=== PATIENT | female | born 1965 | race Caucasian/White ===

== ENCOUNTER 2020-01-30 12:50 | Outpatient (CLI) | payer MEDICAID, SELFPAY ==
[2020-01-30 13:57] LABS: Eosinophils % 0.8 %; Hematocrit 39.1 % (37.0-47.0); Hemoglobin 13.1 g/dL (11.5-15.3); Lymphocytes # 0.8 10^3/uL (0.8-4.8); Lymphocytes % 20.6 %; Mean Corpuscular HGB Conc 33.5 g/dL (30.0-36.0); Mean Corpuscular Hemoglobin 30.2 pg (28.0-34.0); Mean Corpuscular Volume 90.1 fL (81-99); Mean Platelet Volume 10.2 fL (7.4-10.4); Monocytes # 0.4 10^3/uL (0.2-0.9); Monocytes % 10.8 %; Neutrophils # 2.6 10^3/uL (1.8-7.7); Neutrophils % 66.3 %; Nucleated Red Blood Cells % 0 %; Platelet Count 227 10^3/cmm (130-400); Red Blood Count 4.34 10^6/uL (4.1-5.3); White Blood Count 3.9 10^3/uL (4.0-10.0)
[2020-01-30 14:27] LABS: Alanine Aminotransferase 20 U/L (0-33); Albumin Level 4.7 g/dL (3.5-5.2); Alkaline Phosphatase 35 IU/L (35-105); Anion Gap 17.8 (5-19); Aspartate Amino Transferase 32 U/L (0-32); Blood Urea Nitrogen 14 mg/dL (6-20); Calcium 9.6 mg/dL (8.5-10.5); Carbon Dioxide 19 mmol/L (22-29); Chloride 104 mmol/L (98-107); Glucose 108 mg/dL (65-115); Osmolality Calculated 281 mOsm/kg (285-295); Potassium 3.8 mmol/L (3.5-5.1); Sodium 137 mmol/L (136-145); Total Bilirubin 0.4 mg/dL (0.15-1.2); Total Protein 7.7 g/dL (6.6-8.7)
[2020-01-30 14:42] LABS: 25 Hydroxy Vitamin D 25 ng/mL (30-100)
[2020-01-30] MEDS: sodium chloride 0.9% 100 ML 300 ML (14:43)
--- NOTE | 2020-02-02 15:36 | ONC FU_ITS ---
Dr. Wellington Patient Follow-Up Note Patient: Bella Conley Unit #: [id number]: 1965 Dicatated By: Al Wellington M.D.Date of Visit:Jan 30, 2020 Onc Med Follow-up/Prog Note Chief Complaint: Breast cancer. History of Present Illness: This is a 54 year-old woman with grade 2 infiltrating ductal carcinoma of the right breast, stage IIB (T2, pN1a, M0), ER/GA positive and HER-2/wan negative. She had presented with bloody discharge from the right nipple. Her bilateral screening mammogram on 11/08/2017 showed a question of increasing calcification cluster in the lateral superior posterior third right breast, BI-RADS 0. Additional mammographic views and ultrasound on 01/19/2018 was BI-RADS 5, highly suggestive of malignancy. Numerous irregularly shaped calcifications were noted along the 9 to 10:00 axis with adjacent soft tissue asymmetry measuring 18 x 8 mm. Ultrasound showed an irregular shaped mass at the 9:00 axis measuring 13 x 9 mm. She underwent ultrasound-guided biopsy on 01/29/2018. Pathology showed grade 2 infiltrating ductal carcinoma. The breast prognostic profile showed unfavorable Ki-67 at 36%. ER was positive at 91%, strong intensity, and GA was positive at 72%, also strong intensity. HER-2/wan was nonamplified, 2+ by IHC with amplification ratio by FISH of 1.8 with 2.5 HER- copy/cell. She then had surgical consultation with Dr. Katz in [place]. She had further evaluation with breast MRI. On 04/02/2018 she underwent right total mastectomy with axillary sentinel lymph node sampling, prophylactic left mastectomy, and immediate breast reconstruction. Pathology on the left breast showed fibrocystic change with fibrosis, apocrine metaplasia, and microcyst formation. The right breast showed grade 2 invasive ductal carcinoma measuring 21 x 20 x 15 mm. The closest margin from invasive carcinoma was greater than 10 mm. 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 The closest margin from DCIS was the deep margin at 6 mm. There was involvement in 2 of 2 axillary sentinel lymph nodes, the largest metastatic deposit measuring 6 mm. There was evidence of extranodal extension. The pathologic staging was pT2, pN1a. She underwent adjuvant chemotherapy with dose dense AC/T. She began cycle 1 of Adriamycin/cyclophosphamide on 05/16/2018. She did receive first cycle prophylaxis with Neulasta. She tolerated it with acceptable toxicity, and she was able to continue with cycle 2 on 05/30/2018. With cycle 3 on 06/13/2018 I did opt to omit the Neulasta. She was able to continue with cycle 4 on 06/28/2018. She then began weekly paclitaxel on 07/12/2018. She tolerated the initial infusion with no acute toxicity, and she then continue treatment weekly. She completed her 12th and final weekly paclitaxel infusion on 09/27/2018. She then underwent bilateral breast reconstruction. In December 2018 she began adjuvant hormonal therapy with anastrozole 1 mg daily. Within 2 days with pre-severe reaction which included swelling in her face, eyes, and tongue. It resolved with Benadryl. She then began a trial of therapy with exemestane 25 mg daily on 01/21/2019. She experienced no acute toxicity with it. Restaging PET/CT on 04/06/2019 showed an FDG avid right level II axillary lymph node measuring 5 mm, SUV 1.8. It was felt to be suspicious for micrometastasis. There were no other areas of abnormal uptake on that study. She was then seen by Dr. Katz and she underwent right axillary lymph node dissection on 04/29/2019. Pathology showed metastatic ductal carcinoma involving 2/2 lymph nodes. The metastatic deposits measured 3 mm and 6 mm, and both showed extracapsular extension. The breast prognostic profile showed ER positive at 98% and GA positive at 29%. HER-2/wan was negative, 1+ by IHC. A next generation sequencing study was positive for androgen receptor at 2+. It was also positive for PD-L1 expression at 1%. There were no actionable mutations identified. She was then seen for second opinion evaluation by Dr. Jensen Reeves at [facility]. She was referred for consolidation radiation therapy to the right axilla, and she continued adjuvant hormonal therapy with exemestane. She also was recommended to begin Zometa infusions prophylactically for bone health. Her other medical illnesses have been limited to hypothyroidism, GERD, and seasonal allergies. Her prior surgeries include vaginal hysterectomy in 1996 and appendectomy in 1994. She had been on long-term hormone replacement therapy beginning in 1997, though she apparently did not have oophorectomy. Her hormonal therapy was stopped with the diagnosis of her breast cancer. She had previously smoked 1-1/2 packs of cigarettes daily, but she quit smoking at age 32. INTERIM HISTORY: She is seen for a follow-up visit. Overall she has been feeling better. She still sometimes feels really tired, she has normal activity. Her appetite is good. She has not had fever. She does tend to get hot flashes and sweating on a regular basis about 3 to 4 a.m. She does have joint pain, mainly in the hips and elbows and a little bit in her knees. She says it stays about the same. She does get some benefit when she takes Aleve. She has a little bit of dry cough. She has no shortness of breath or chest pain. Her acid reflux symptoms are adequately managed with medication. She has no other GI or complaints. She does not complain of headache or dizziness. She has no focal neurologic symptoms. Medications: Advil 1 Tablet (of 200 mg) Capsule Oral daily PRN, busPIRone HCl 1 Tablet (of 10 mg) Oral t.i.d., Furosemide 20 - 40 mg (of 20 mg) Tablet Oral daily PRN, Percocet 0.5 Tablet (of 5-325 mg) Oral q 4 to 6 hours PRN, PROzac 1 Capsule (of 20 mg) Oral daily, PROzac 1 Capsule (of 40 mg) Oral daily, traZODone HCl 1 (100 mg) Tablet Oral at bedtime Allergies: Anastrozole Review of Systems: Constitutional - Her energy is better. She still gets fatigued easily, but she is doing all normal activities. Appetite is good and weight is stable. No fever or chills. She is having constant hot flashes during the night along with sweating. ECOG score is 0, ENMT - No sinus congestion/drainage. No mouth sores. No sore throat or difficulty swallowing, Hematologic/Lymphatic - No abnormal bruising or bleeding, Respiratory - No shortness of breath. She has a dry cough. No pleuritic pain or hemoptysis, Cardiovascular - No angina pain. No palpitations, Gastrointestinal - No nausea or vomiting. She has heartburn that is well controlled with Prilosec. No diarrhea or constipation. No blood in the stool or black stools, Genitourinary (F) - No dysuria or hematuria. No urinary frequency. No urgency or incontinence, Musculoskeletal - She has some joint pain, but tolerable, Integumentary - No skin complications, Neurologic - Occasional headaches. No dizziness. No numbness/paresthesias or other focal neurologic symptoms, Psychiatric - She has some anxiety. No depression. She sleeps okay with trazodone. Vital Signs: Performed on Jan 30, 2020 14:11 Height - 68.00 in Weight - 197.2 lbs (HIGH) BSA - 2.03 sq.m BMI - 29.98 Temperature - 99.2 F (HIGH) Pulse - 64 /min Respiration - 18 /min BP - 142/74 mm(hg) (HIGH) O2 Sat - 99 % Pain - 0 Physical Examination: Constitutional - She looks good generally, Eyes - Sclerae nonicteric. Conjunctivae clear, ENMT - No lesions noted in the oral cavity, Hematologic/Lymphatic - No cervical or clavicular adenopathy, Respiratory - Lungs are clear with good air movement bilaterally, Cardiovascular - Heart rhythm is regular. There is no murmur, gallop, or rub noted, Breasts - There are no lesions noted in the chest wall/reconstruction bilaterally. There is no axillary adenopathy, Abdomen - Soft. Liver and spleen are not enlarged. There is no abdominal mass or ascites noted and there is no inguinal adenopathy, Extremities - No edema, Neurologic - No focal neurologic deficits noted. Lab/Imaging: Test performed on Jan 30, 2020 13:10 Sodium 137 mmol/L Vitamin D (25-Hydroxy), Total 25 ng/mL Potassium 3.8 mmol/L Chloride 104 mmol/L CO2 19 mmol/L Anion Gap 17.8 BUN 14 mg/dL Creatinine 0.8 mg/dL Cr Clearance (Est) 114.8400 mL/min eGFR 75.0 mL/min Glucose 108 mg/dL Calcium 9.6 mg/dL Protein, Total 7.7 g/dL Albumin 4.7 g/dL Globulin 3.0 g/dL Bilirubin, Total 0.4 mg/dL ALT (SGPT) 20 U/L AST (SGOT) 32 U/L Alkaline Phosphatase 35 IU/L WBC 3.9 10 3/uL RBC 4.34 10 6/uL HGB 13.1 g/dL HCT 39.1 % MCV 90.1 fL MCH 30.2 pg MCHC 33.5 g/dL RDW 13.0 % Platelet Count 227 10 3/cmm MPV 10.2 fL Neutrophils 2.6 10 3/uL Lymphocytes 0.8 10 3/uL Monocytes 0.4 10 3/uL Eosinophils 0.0 10 3/uL Basophils 0.0 10 3/uL Neutrophil % 66.3 % Lymphocyte % 20.6 % Monocyte % 10.8 % Eosinophil % 0.8 % Basophils % 1.0 % Impression: 1. Patient with grade 2 infiltrating ductal carcinoma of the right breast, stage IIB (T2, pN1a, M0), ER/GA positive and HER-2/wan negative. 2. She underwent ultrasound directed biopsy of the right breast on 01/29/2018 followed by bilateral mastectomy with immediate reconstruction and right axillary sentinel lymph node sampling on 04/02/2018. 3. She underwent adjuvant chemotherapy with 4 cycles of dose dense AC from 05/16/2018 through 06/28/2018 and 12 weekly infusions of paclitaxel from 07/12/2018 through 09/27/2018. 4. She then underwent bilateral breast reconstruction. Her other medical illnesses include: 5. Hypothyroidism. 6. Seasonal allergies. 7. GERD. In December 2018 she began adjuvant hormonal therapy with anastrozole 1 mg daily. It was stopped within 2 days because of an acute reaction which included swelling in the face, eyes, and tongue. It resolved with Benadryl. She then began a trial of hormonal therapy with exemestane 25 mg daily on 01/21/2019. Restaging PET/CT in March 2019 showed suspicious uptake in a right level II axillary lymph node. A subsequent right axillary lymph node dissection on 04/29/2019 showed metastatic ductal carcinoma in 2/2 lymph nodes, both with extracapsular extension, ER/GA positive and HER-2/wan negative. Next generation sequencing showed androgen receptor positive at 2+ and positive PD-L1 expression at 1%. She was then seen for second opinion evaluation by Dr. Jensen Reeves at [facility]. She completed consolidation radiation to the right axilla. She continued adjuvant hormonal therapy with exemestane 25 mg daily. She also began IV Zometa for bone health. She tolerated the initial infusion with no adverse effects. During follow-up she has continued to have some fatigue and she has some musculoskeletal pain, though it is tolerable. Overall, she appears to be doing well clinically with no further progression of the breast cancer. Plan: She continues adjuvant hormonal therapy with exemestane 25 mg daily. She will be given Zometa 4 mg by IV infusion for bone health. She will take Aleve as needed for joint pain. She will be scheduled for a follow-up visit in 6 months. Signed By: Al Wellington M.D. <<Signature on File>>
== END 2020-01-30 12:51 | disposition home or self-care (01) ==
LOC: ONCMED 12:54
PROVIDERS: Family Provider Registered Nurse; PCP Registered Nurse; Visit Provider Internal Medicine Medical Oncology
DX: C50.411 Malignant neoplasm of upper-outer quadrant of right female breast (principal); C77.3 Secondary and unspecified malignant neoplasm of axilla and upper limb lymph nodes; Z17.0 Estrogen receptor positive status [ER+]; E03.9 Hypothyroidism, unspecified; K21.9 Gastro-esophageal reflux disease without esophagitis; M25.50 Pain in unspecified joint; Z79.811 Long term (current) use of aromatase inhibitors; Z79.891 Long term (current) use of opiate analgesic; Z90.13 Acquired absence of bilateral breasts and nipples; Z92.21 Personal history of antineoplastic chemotherapy; Z92.3 Personal history of irradiation; Z87.891 Personal history of nicotine dependence
CPT/HCPCS: 80053; 82306; 85025; 96365; 96367; 99214; J1100; J3489

== ENCOUNTER 2020-07-30 14:01 | Outpatient (CLI) | payer MEDICAID, SELFPAY ==
[2020-07-30 14:37] LABS: Basophils # 0.1 10^3/uL (0.0-0.1); Basophils % 1.1 %; Eosinophils # 0.1 10^3/uL (0.0-0.8); Eosinophils % 1.5 %; Hematocrit 39.3 % (37.0-47.0); Hemoglobin 13.5 g/dL (11.5-15.3); Lymphocytes # 1.1 10^3/uL (0.8-4.8); Lymphocytes % 23.6 %; Mean Corpuscular HGB Conc 34.4 g/dL (30.0-36.0); Mean Corpuscular Hemoglobin 31.8 pg (28.0-34.0); Mean Corpuscular Volume 92.7 fL (81-99); Mean Platelet Volume 9.6 fL (7.4-10.4); Monocytes # 0.3 10^3/uL (0.2-0.9); Monocytes % 7.3 %; Neutrophils # 3.09 10^3/uL (1.8-7.7); Neutrophils % 66.3 %; Nucleated Red Blood Cells % 0 %; Platelet Count 217 10^3/cmm (130-400); Red Blood Count 4.24 10^6/uL (4.1-5.3); Red Cell Distribution Width 12.5 % (12.1-15.1); White Blood Count 4.7 10^3/uL (4.0-10.0)
[2020-07-30 15:15] LABS: 25 Hydroxy Vitamin D 33 ng/mL (30-100); Alanine Aminotransferase 38 U/L (0-33); Albumin Level 4.9 g/dL (3.5-5.2); Alkaline Phosphatase 41 IU/L (35-105); Anion Gap 14.8 (5-19); Aspartate Amino Transferase 36 U/L (0-32); Blood Urea Nitrogen 19 mg/dL (6-20); Calcium 8.8 mg/dL (8.5-10.5); Carbon Dioxide 25 mmol/L (22-29); Chloride 99 mmol/L (98-107); Globulin 2.9 g/dL (1.3-4.6); Glomerular Filtration Rate 65.2 mL/min (90-130); Glucose 121 mg/dL (65-115); Osmolality Calculated 278 mOsm/kg (285-295); Potassium 3.8 mmol/L (3.5-5.1); Sodium 135 mmol/L (136-145); Total Bilirubin 0.4 mg/dL (0.15-1.2); Total Protein 7.8 g/dL (6.6-8.7)
[2020-07-30] MEDS: zoledronic acid 4 MG in sodium chloride 0.9% (100 ml) 100 ML 210 MG IV (16:45)
--- NOTE | 2020-07-31 08:18 | ONC FU_ITS ---
Dr. Wellington Patient Follow-Up Note Patient: Bella Conley Unit #: [id number]: 1965 Dicatated By: Al Wellington M.D.Date of Visit:Jul 30, 2020 Onc Med Follow-up/Prog Note Chief Complaint: Breast cancer. History of Present Illness: This is a 54 year-old woman with grade 2 infiltrating ductal carcinoma of the right breast, stage IIB (T2, pN1a, M0), ER/RI positive and HER-2/wan negative. She had presented with bloody discharge from the right nipple. Her bilateral screening mammogram on 11/08/2017 showed a question of increasing calcification cluster in the lateral superior posterior third right breast, BI-RADS 0. Additional mammographic views and ultrasound on 01/19/2018 was BI-RADS 5, highly suggestive of malignancy. Numerous irregularly shaped calcifications were noted along the 9 to 10:00 axis with adjacent soft tissue asymmetry measuring 18 x 8 mm. Ultrasound showed an irregular shaped mass at the 9:00 axis measuring 13 x 9 mm. She underwent ultrasound-guided biopsy on 01/29/2018. Pathology showed grade 2 infiltrating ductal carcinoma. The breast prognostic profile showed unfavorable Ki-67 at 36%. ER was positive at 91%, strong intensity, and RI was positive at 72%, also strong intensity. HER-2/wan was nonamplified, 2+ by IHC with amplification ratio by FISH of 1.8 with 2.5 HER- copy/cell. She then had surgical consultation with Dr. Katz in [place]. She had further evaluation with breast MRI. On 04/02/2018 she underwent right total mastectomy with axillary sentinel lymph node sampling, prophylactic left mastectomy, and immediate breast reconstruction. Pathology on the left breast showed fibrocystic change with fibrosis, apocrine metaplasia, and microcyst formation. The right breast showed grade 2 invasive ductal carcinoma measuring 21 x 20 x 15 mm. The closest margin from invasive carcinoma was greater than 10 mm. 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 The closest margin from DCIS was the deep margin at 6 mm. There was involvement in 2 of 2 axillary sentinel lymph nodes, the largest metastatic deposit measuring 6 mm. There was evidence of extranodal extension. The pathologic staging was pT2, pN1a. She underwent adjuvant chemotherapy with dose dense AC/T. She began cycle 1 of Adriamycin/cyclophosphamide on 05/16/2018. She did receive first cycle prophylaxis with Neulasta. She tolerated it with acceptable toxicity, and she was able to continue with cycle 2 on 05/30/2018. With cycle 3 on 06/13/2018 I did opt to omit the Neulasta. She was able to continue with cycle 4 on 06/28/2018. She then began weekly paclitaxel on 07/12/2018. She tolerated the initial infusion with no acute toxicity, and she then continue treatment weekly. She completed her 12th and final weekly paclitaxel infusion on 09/27/2018. She then underwent bilateral breast reconstruction. In December 2018 she began adjuvant hormonal therapy with anastrozole 1 mg daily. Within 2 days with pre-severe reaction which included swelling in her face, eyes, and tongue. It resolved with Benadryl. She then began a trial of therapy with exemestane 25 mg daily on 01/21/2019. She experienced no acute toxicity with it. Restaging PET/CT on 04/06/2019 showed an FDG avid right level II axillary lymph node measuring 5 mm, SUV 1.8. It was felt to be suspicious for micrometastasis. There were no other areas of abnormal uptake on that study. She was then seen by Dr. Katz and she underwent right axillary lymph node dissection on 04/29/2019. Pathology showed metastatic ductal carcinoma involving 2/2 lymph nodes. The metastatic deposits measured 3 mm and 6 mm, and both showed extracapsular extension. The breast prognostic profile showed ER positive at 98% and RI positive at 29%. HER-2/wan was negative, 1+ by IHC. A next generation sequencing study was positive for androgen receptor at 2+. It was also positive for PD-L1 expression at 1%. There were no actionable mutations identified. She was then seen for second opinion evaluation by Dr. Jensen Reeves at [facility]. She was referred for consolidation radiation therapy to the right axilla, and she continued adjuvant hormonal therapy with exemestane. She also was recommended to begin Zometa infusions prophylactically for bone health. Her other medical illnesses have been limited to hypothyroidism, GERD, and seasonal allergies. Her prior surgeries include vaginal hysterectomy in 1996 and appendectomy in 1994. She had been on long-term hormone replacement therapy beginning in 1997, though she apparently did not have oophorectomy. Her hormonal therapy was stopped with the diagnosis of her breast cancer. She had previously smoked 1-1/2 packs of cigarettes daily, but she quit smoking at age 32. INTERIM HISTORY: She is seen for a follow-up visit. She had a scheduled follow-up at [facility] in May. She indicates that her restaging PET/CT at that time showed no evidence of recurrence. She was recommended to continue her adjuvant hormonal therapy and to also continue the Zometa infusions for bone health. She has been feeling pretty good generally, though she says she is tired a lot. Her ECOG score is 1. Her appetite is good. She has gained weight. She has not had fever. 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 She has some sinus drainage and cough. She does not complain of shortness of breath or chest pain. She has heartburn, which is pretty well controlled with omeprazole. She has no other GI or complaints. She has some generalized soreness, at least some of which is attributable to the Zometa. She has some sinus headaches. She does not complain of dizziness. She has no focal neurologic symptoms. Medications: Advil 1 Tablet (of 200 mg) Capsule Oral daily PRN, Omeprazole 1 (40 mg) Capsule Delayed Release Oral daily, PROzac 1 Capsule (of 40 mg) Oral daily, traZODone HCl 1 (100 mg) Tablet Oral at bedtime Allergies: Anastrozole Review of Systems: Constitutional - She is feeling good, but she does feel tired alot of the time. Her appetite is good and her weight is stable. No fevers. She continues to have nightly sweating episodes. No hot flashes. ECOG score is 1, ENMT - She has seasonal allergies. She recently started taking Benadryl at night. She has some sinus drainage. No mouth sores. No sore throat or difficulty swallowing, Hematologic/Lymphatic - No abnormal bruising or bleeding, Respiratory - No shortness of breath. She has cough, mainly at night from sinus drainage. No pleuritic pain or hemoptysis, Cardiovascular - No angina pain. No palpitations, Gastrointestinal - No nausea or vomiting. Her heartburn is adequately managed with omeprazole. No diarrhea or constipation. No blood in the stool or black stools, Genitourinary (F) - No dysuria or hematuria. No urinary frequency. No urgency or incontinence, Musculoskeletal - She has some generalized aches, Integumentary - No skin complications, Neurologic - She has occasional headaches, she believes they are sinus related. No dizziness. No numbness or tingling. No other focal neurologic symptoms, Psychiatric - She has some mild anxiety. No depression. She is sleeping well with trazodone. Vital Signs: Performed on Jul 30, 2020 15:50 Height - 68.00 in Weight - 198.8 lbs (HIGH) BSA - 2.04 sq.m BMI - 30.23 (HIGH) Temperature - 97.7 F (LOW) Pulse - 72 /min Respiration - 16 /min BP - 145/69 mm(hg) (HIGH) O2 Sat - 97 % Pain - 0 Physical Examination: Constitutional - She looks good generally, Eyes - Sclerae nonicteric. Conjunctivae clear, ENMT - No lesions noted in the oral cavity, Hematologic/Lymphatic - No cervical, clavicular, or axillary adenopathy, Respiratory - Lungs are clear with good air movement bilaterally, Cardiovascular - Heart rhythm is regular. There is no murmur, gallop, or rub noted, Abdomen - Soft. Liver and spleen are not enlarged. There is no abdominal mass or ascites noted and there is no inguinal adenopathy, Extremities - No edema, Neurologic - No focal neurologic deficits noted. Lab/Imaging: Test performed on Jul 30, 2020 14:12 Sodium 135 mmol/L Vitamin D (25-Hydroxy), Total 33 ng/mL Potassium 3.8 mmol/L Chloride 99 mmol/L CO2 25 mmol/L Anion Gap 14.8 BUN 19 mg/dL Creatinine 0.9 mg/dL Cr Clearance (Est) 101.73 mL/min eGFR 65.2 mL/min Glucose 121 mg/dL Calcium 8.8 mg/dL Protein, Total 7.8 g/dL Albumin 4.9 g/dL Globulin 2.9 g/dL Bilirubin, Total 0.4 mg/dL ALT (SGPT) 38 U/L AST (SGOT) 36 U/L Alkaline Phosphatase 41 IU/L WBC 4.7 10 3/uL RBC 4.24 10 6/uL HGB 13.5 g/dL HCT 39.3 % MCV 92.7 fL MCH 31.8 pg MCHC 34.4 g/dL RDW 12.5 % Platelet Count 217 10 3/cmm MPV 9.6 fL Neutrophils 3.09 10 3/uL Lymphocytes 1.1 10 3/uL Monocytes 0.3 10 3/uL Eosinophils 0.1 10 3/uL Basophils 0.1 10 3/uL Neutrophil % 66.3 % Lymphocyte % 23.6 % Monocyte % 7.3 % Eosinophil % 1.5 % Basophils % 1.1 % NRBC % 0 % Impression: 1. Patient with grade 2 infiltrating ductal carcinoma of the right breast, stage IIB (T2, pN1a, M0), ER/RI positive and HER-2/wan negative. 2. She underwent ultrasound directed biopsy of the right breast on 01/29/2018 followed by bilateral mastectomy with immediate reconstruction and right axillary sentinel lymph node sampling on 04/02/2018. 3. She underwent adjuvant chemotherapy with 4 cycles of dose dense AC from 05/16/2018 through 06/28/2018 and 12 weekly infusions of paclitaxel from 07/12/2018 through 09/27/2018. 4. She then underwent bilateral breast reconstruction. Her other medical illnesses include: 5. Hypothyroidism. 6. Seasonal allergies. 7. GERD. In December 2018 she began adjuvant hormonal therapy with anastrozole 1 mg daily. It was stopped within 2 days because of an acute reaction which included swelling in the face, eyes, and tongue. It resolved with Benadryl. She then began a trial of hormonal therapy with exemestane 25 mg daily on 01/21/2019. Restaging PET/CT in March 2019 showed suspicious uptake in a right level II axillary lymph node. A subsequent right axillary lymph node dissection on 04/29/2019 showed metastatic ductal carcinoma in 2/2 lymph nodes, both with extracapsular extension, ER/RI positive and HER-2/wan negative. Next generation sequencing showed androgen receptor positive at 2+ and positive PD-L1 expression at 1%. She was then seen for second opinion evaluation by Dr. Jensen Reeves at [facility]. She completed consolidation radiation to the right axilla. She continued adjuvant hormonal therapy with exemestane 25 mg daily. She also began IV Zometa for bone health. She tolerated the initial infusion with no adverse effects. During follow-up she has continued to have some fatigue. She also has some hot flashes and some generalized soreness, and she also has had weight gain. Her symptoms, though, remain tolerable and overall she continues to do well clinically with no evidence of recurrence of the breast cancer. Plan: She continues adjuvant hormonal therapy with exemestane 25 mg daily. She will be given Zometa 4 mg by IV infusion for bone health. She will be premedicated with dexamethasone. She will be scheduled for a follow-up visit in 6 months. Signed By: Al Wellington M.D. <<Signature on File>>
== END 2020-07-30 14:02 | disposition home or self-care (01) ==
LOC: ONCMED 14:04
PROVIDERS: PCP Registered Nurse; Visit Provider Internal Medicine Medical Oncology
DX: C50.411 Malignant neoplasm of upper-outer quadrant of right female breast (principal); Z17.0 Estrogen receptor positive status [ER+]; C77.3 Secondary and unspecified malignant neoplasm of axilla and upper limb lymph nodes; E03.9 Hypothyroidism, unspecified; E55.9 Vitamin D deficiency, unspecified; J30.2 Other seasonal allergic rhinitis; K21.9 Gastro-esophageal reflux disease without esophagitis; R53.83 Other fatigue; Z79.811 Long term (current) use of aromatase inhibitors; Z90.13 Acquired absence of bilateral breasts and nipples; Z79.899 Other long term (current) drug therapy; Z79.52 Long term (current) use of systemic steroids
CPT/HCPCS: 80053; 82306; 85025; 96365; 96367; 99214; J1100; J3489

== ENCOUNTER 2021-02-23 12:58 | Outpatient (CLI) | payer MEDICAID, SELFPAY ==
[2021-02-23 13:59] LABS: Basophils # 0.1 10^3/uL (0.0-0.1); Basophils % 1.2 %; Eosinophils # 0.1 10^3/uL (0.0-0.8); Eosinophils % 1.4 %; Hematocrit 40.1 % (37.0-47.0); Hemoglobin 13.3 g/dL (11.5-15.3); Lymphocytes # 1.2 10^3/uL (0.8-4.8); Lymphocytes % 24.1 %; Mean Corpuscular HGB Conc 33.2 g/dL (30.0-36.0); Mean Corpuscular Hemoglobin 31.1 pg (28.0-34.0); Mean Corpuscular Volume 93.7 fL (81-99); Mean Platelet Volume 9.9 fL (7.4-10.4); Monocytes # 0.4 10^3/uL (0.2-0.9); Monocytes % 8.2 %; Neutrophils # 3.31 10^3/uL (1.8-7.7); Neutrophils % 64.7 %; Nucleated Red Blood Cells % 0 %; Platelet Count 233 10^3/cmm (130-400); Red Blood Count 4.28 10^6/uL (4.1-5.3); Red Cell Distribution Width 12.3 % (12.1-15.1); White Blood Count 5.1 10^3/uL (4.0-10.0)
[2021-02-23 14:18] LABS: Alanine Aminotransferase 22 U/L (0-33); Albumin Level 4.8 g/dL (3.5-5.2); Alkaline Phosphatase 42 IU/L (35-105); Anion Gap 16.2 (5-19); Aspartate Amino Transferase 29 U/L (0-32); Blood Urea Nitrogen 21 mg/dL (6-20); Calcium 9.1 mg/dL (8.5-10.5); Carbon Dioxide 23 mmol/L (22-29); Chloride 102 mmol/L (98-107); Globulin 2.4 g/dL (1.3-4.6); Glomerular Filtration Rate 65.2 mL/min (90-130); Glucose 91 mg/dL (65-115); Osmolality Calculated 287 mOsm/kg (285-295); Potassium 4.2 mmol/L (3.5-5.1); Sodium 137 mmol/L (136-145); Total Bilirubin 0.4 mg/dL (0.15-1.2); Total Protein 7.2 g/dL (6.6-8.7)
[2021-02-23] MEDS: sodium chloride 0.9% (100 ml) 100 ML 300 ML (15:27)
[2021-02-23] MEDS: zoledronic acid 4 MG in sodium chloride 0.9% (100 ml) 100 ML 420 MG IV (15:43)
--- NOTE | 2021-02-27 11:54 | ONC FU_ITS ---
Dr. Wellington Patient Follow-Up Note Patient: Bella Conley Unit #: [id number]: 1965 Dicatated By: Al Wellington M.D.Date of Visit:Feb 23, 2021 Onc Med Follow-up/Prog Note Chief Complaint: Breast cancer. History of Present Illness: This is a 55 year-old woman with grade 2 infiltrating ductal carcinoma of the right breast, stage IIB (T2, pN1a, M0), ER/AK positive and HER-2/wan negative. She had presented with bloody discharge from the right nipple. Her bilateral screening mammogram on 11/08/2017 showed a question of increasing calcification cluster in the lateral superior posterior third right breast, BI-RADS 0. Additional mammographic views and ultrasound on 01/19/2018 was BI-RADS 5, highly suggestive of malignancy. Numerous irregularly shaped calcifications were noted along the 9 to 10:00 axis with adjacent soft tissue asymmetry measuring 18 x 8 mm. Ultrasound showed an irregular shaped mass at the 9:00 axis measuring 13 x 9 mm. She underwent ultrasound-guided biopsy on 01/29/2018. Pathology showed grade 2 infiltrating ductal carcinoma. The breast prognostic profile showed unfavorable Ki-67 at 36%. ER was positive at 91%, strong intensity, and AK was positive at 72%, also strong intensity. HER-2/wan was nonamplified, 2+ by IHC with amplification ratio by FISH of 1.8 with 2.5 HER- copy/cell. She then had surgical consultation with Dr. Katz in [place]. She had further evaluation with breast MRI. On 04/02/2018 she underwent right total mastectomy with axillary sentinel lymph node sampling, prophylactic left mastectomy, and immediate breast reconstruction. Pathology on the left breast showed fibrocystic change with fibrosis, apocrine metaplasia, and microcyst formation. The right breast showed grade 2 invasive ductal carcinoma measuring 21 x 20 x 15 mm. The closest margin from invasive carcinoma was greater than 10 mm. 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 The closest margin from DCIS was the deep margin at 6 mm. There was involvement in 2 of 2 axillary sentinel lymph nodes, the largest metastatic deposit measuring 6 mm. There was evidence of extranodal extension. The pathologic staging was pT2, pN1a. She underwent adjuvant chemotherapy with dose dense AC/T. She began cycle 1 of Adriamycin/cyclophosphamide on 05/16/2018. She did receive first cycle prophylaxis with Neulasta. She tolerated it with acceptable toxicity, and she was able to continue with cycle 2 on 05/30/2018. With cycle 3 on 06/13/2018 I did opt to omit the Neulasta. She was able to continue with cycle 4 on 06/28/2018. She then began weekly paclitaxel on 07/12/2018. She tolerated the initial infusion with no acute toxicity, and she then continue treatment weekly. She completed her 12th and final weekly paclitaxel infusion on 09/27/2018. She then underwent bilateral breast reconstruction. In December 2018 she began adjuvant hormonal therapy with anastrozole 1 mg daily. Within 2 days with pre-severe reaction which included swelling in her face, eyes, and tongue. It resolved with Benadryl. She then began a trial of therapy with exemestane 25 mg daily on 01/21/2019. She experienced no acute toxicity with it. Restaging PET/CT on 04/06/2019 showed an FDG avid right level II axillary lymph node measuring 5 mm, SUV 1.8. It was felt to be suspicious for micrometastasis. There were no other areas of abnormal uptake on that study. She was then seen by Dr. Katz and she underwent right axillary lymph node dissection on 04/29/2019. Pathology showed metastatic ductal carcinoma involving 2/2 lymph nodes. The metastatic deposits measured 3 mm and 6 mm, and both showed extracapsular extension. The breast prognostic profile showed ER positive at 98% and AK positive at 29%. HER-2/wan was negative, 1+ by IHC. A next generation sequencing study was positive for androgen receptor at 2+. It was also positive for PD-L1 expression at 1%. There were no actionable mutations identified. She was then seen for second opinion evaluation by Dr. Jensen Reeves at [facility]. She was referred for consolidation radiation therapy to the right axilla, and she continued adjuvant hormonal therapy with exemestane. She also was recommended to begin Zometa infusions prophylactically for bone health. Her other medical illnesses have been limited to hypothyroidism, GERD, and seasonal allergies. Her prior surgeries include vaginal hysterectomy in 1996 and appendectomy in 1994. She had been on long-term hormone replacement therapy beginning in 1997, though she apparently did not have oophorectomy. Her hormonal therapy was stopped with the diagnosis of her breast cancer. She had previously smoked 1-1/2 packs of cigarettes daily, but she quit smoking at age 32. INTERIM HISTORY: She is seen for a follow-up visit. She has been feeling anxious and depressed, in part because she has had problems with her right breast reconstruction becoming encapsulated, and she is going to be requiring some additional surgery for that. She has generally been feeling tired. ECOG score is 1. She has good appetite. She has not had fever. 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 She has some allergy related sinus drainage and cough. She does not complain of shortness of breath or chest pain. She still occasionally has nausea. Her acid reflux is adequately managed with medication. She has no complaints with bowel or bladder function. She does have some joint soreness and stiffness, enough that at times it is hard for her to get out of bed in the morning. She feels that it is tolerable, though. She sometimes has headache. She does not complain of dizziness. She has no numbness/paresthesia or other focal neurologic symptoms. Medications: Advil 1 Tablet (of 200 mg) Capsule Oral daily PRN, Effexor XR 1 (75 mg) Capsule SR 24 HR Oral daily, Omeprazole 1 (40 mg) Capsule Delayed Release Oral daily, traZODone HCl 1 (100 mg) Tablet Oral at bedtime, Xanax 1 (0.25 mg) Tablet Oral STAT PRN Allergies: Anastrozole Vital Signs: Performed on Feb 23, 2021 14:34 Height - 68.00 in Weight - 202.0 lbs (HIGH) BSA - 2.05 sq.m BMI - 30.71 (HIGH) Temperature - 97.6 F (LOW) Pulse - 67 /min Respiration - 17 /min BP - 166/83 mm(hg) (HIGH) O2 Sat - 99 % Pain - 0 Physical Examination: Constitutional - She looks good generally, Eyes - Sclerae nonicteric. Conjunctivae clear, ENMT - No lesions noted in the oral cavity, Hematologic/Lymphatic - No cervical, clavicular, or axillary adenopathy, Respiratory - Lungs are clear with good air movement bilaterally, Cardiovascular - Heart rhythm is regular. There is no murmur, gallop, or rub noted, Abdomen - Soft. Liver and spleen are not enlarged. There is no abdominal mass or ascites noted and there is no inguinal adenopathy, Extremities - No edema, Neurologic - No focal neurologic deficits noted. Lab/Imaging: Test performed on Feb 23, 2021 13:30 Sodium 137 mmol/L Potassium 4.2 mmol/L Chloride 102 mmol/L CO2 23 mmol/L Anion Gap 16.2 BUN 21 mg/dL Creatinine 0.9 mg/dL Cr Clearance (Est) 103.36 mL/min eGFR 65.2 mL/min Glucose 91 mg/dL Osmolality - Calculated 287 mOsm/kg Calcium 9.1 mg/dL Protein, Total 7.2 g/dL Albumin 4.8 g/dL Globulin 2.4 g/dL Bilirubin, Total 0.4 mg/dL ALT (SGPT) 22 U/L AST (SGOT) 29 U/L Alkaline Phosphatase 42 IU/L WBC 5.1 10 3/uL RBC 4.28 10 6/uL HGB 13.3 g/dL HCT 40.1 % MCV 93.7 fL MCH 31.1 pg MCHC 33.2 g/dL RDW 12.3 % Platelet Count 233 10 3/cmm MPV 9.9 fL Neutrophils 3.31 10 3/uL Lymphocytes 1.2 10 3/uL Monocytes 0.4 10 3/uL Eosinophils 0.1 10 3/uL Basophils 0.1 10 3/uL Neutrophil % 64.7 % Lymphocyte % 24.1 % Monocyte % 8.2 % Eosinophil % 1.4 % Basophils % 1.2 % NRBC % 0 % Problem List: 1. Grade 2 infiltrating ductal carcinoma of the right breast, stage IIB (T2, pN1a, M0), ER/AK positive and HER-2/wan negative. 2. Hypothyroidism. 3. Seasonal allergies. 4. GERD. Problems Addressed with this Encounter and Plan: 1. Patient with grade 2 infiltrating ductal carcinoma of the right breast, stage IIB (T2, pN1a, M0), ER/AK positive and HER-2/wan negative. She underwent ultrasound directed biopsy of the right breast on 01/29/2018 followed by bilateral mastectomy with immediate reconstruction and right axillary sentinel lymph node sampling on 04/02/2018. She was given adjuvant chemotherapy with 4 cycles of dose dense AC from 05/16/2018 through 06/28/2018 and 12 weekly infusions of paclitaxel from 07/12/2018 through 09/27/2018. She then underwent bilateral breast reconstruction. In December 2018 she began adjuvant hormonal therapy with anastrozole 1 mg daily. It was stopped within 2 days because of an acute reaction which included swelling in the face, eyes, and tongue. It resolved with Benadryl. She then began a trial of hormonal therapy with exemestane 25 mg daily on 01/21/2019. Restaging PET/CT in March 2019 showed suspicious uptake in a right level II axillary lymph node. A subsequent right axillary lymph node dissection on 04/29/2019 showed metastatic ductal carcinoma in 2/2 lymph nodes, both with extracapsular extension, ER/AK positive and HER-2/wan negative. Next generation sequencing showed androgen receptor positive at 2+ and positive PD-L1 expression at 1%. She was then seen for second opinion evaluation by Dr. Jensen Reeves at [facility]. She completed consolidation radiation to the right chest wall and axilla. She continued adjuvant hormonal therapy with exemestane 25 mg daily. During follow-up she has continued to have some side effects with the exemestane including fatigue, weight gain, and generalized aching. Overall, the side effects remain tolerable. Thus far there has been no evidence for any further recurrence/progression of the breast cancer. She continues adjuvant hormonal therapy with exemestane 25 mg daily. She will be scheduled for a follow-up visit in 6 months. 2. She is at risk for osteoporosis due to long-term therapy with an aromatase inhibitor. As such, she will be given Zometa 4 mg by IV infusion for bone health. As before, she will be premedicated with dexamethasone. 3. She has anxiety and depression. She has been on treatment with fluoxetine 60 mg daily. At this point I will try transitioning her to venlafaxine ER, initially at 75 mg daily. The dosage will be escalated as necessary. She also will be given a prescription for alprazolam to take as needed. Signed By: Al Wellington M.D. <<Signature on File>>
== END 2021-02-23 12:59 | disposition home or self-care (01) ==
LOC: ONCMED 13:01
PROVIDERS: PCP Registered Nurse; Visit Provider Internal Medicine Medical Oncology
DX: C50.411 Malignant neoplasm of upper-outer quadrant of right female breast (principal); Z17.0 Estrogen receptor positive status [ER+]; R53.83 Other fatigue; L29.8 Other pruritus; T45.1X5A Adverse effect of antineoplastic and immunosuppressive drugs, initial encounter; Z90.13 Acquired absence of bilateral breasts and nipples; Z79.811 Long term (current) use of aromatase inhibitors
CPT/HCPCS: 80053; 85025; 96365; 96367; 99214; J1100; J3489

== ENCOUNTER 2021-09-08 12:52 | Outpatient (CLI) | payer MEDICAID, SELFPAY ==
[2021-09-08 13:44] LABS: Basophils # 0.1 10^3/uL (0.0-0.1); Basophils % 1.4 %; Eosinophils # 0.1 10^3/uL (0.0-0.8); Eosinophils % 2.1 %; Hematocrit 41.1 % (37.0-47.0); Lymphocytes # 1.3 10^3/uL (0.8-4.8); Lymphocytes % 31.1 %; Mean Corpuscular HGB Conc 34.1 g/dL (30.0-36.0); Mean Corpuscular Hemoglobin 31.9 pg (28.0-34.0); Mean Corpuscular Volume 93.6 fl (81-99); Mean Platelet Volume 9.8 fL (7.4-10.4); Monocytes # 0.4 10^3/uL (0.2-0.9); Monocytes % 8.9 %; Neutrophils # 2.38 10^3/uL (1.8-7.7); Nucleated Red Blood Cells % 0 %; Platelet Count 216 10^3/cmm (130-400); Red Blood Count 4.39 10^6/uL (4.1-5.3); Red Cell Distribution Width 12.5 % (12.1-15.1); White Blood Count 4.3 10^3/uL (4.0-10.0)
[2021-09-08 13:58] LABS: Alanine Aminotransferase 33 U/L (0-33); Albumin Level 4.5 g/dL (3.5-5.2); Alkaline Phosphatase 42 IU/L (35-105); Anion Gap 18.1 (5-19); Aspartate Amino Transferase 30 U/L (0-32); Blood Urea Nitrogen 16 mg/dL (6-20); Calcium 9.6 mg/dL (8.5-10.5); Carbon Dioxide 24 mmol/L (22-29); Chloride 99 mmol/L (98-107); Glucose 85 mg/dL (65-115); Osmolality Calculated 284 mOsm/kg (285-295); Potassium 4.1 mmol/L (3.5-5.1); Sodium 137 mmol/L (136-145); Total Bilirubin 0.3 mg/dL (0.15-1.2); Total Protein 7.5 g/dL (6.6-8.7)
[2021-09-08] MEDS: sodium chloride 0.9% 250 ML 75 ML IV (15:04)
[2021-09-08] MEDS: zoledronic acid 4 MG in sodium chloride 0.9% (100 ml) 100 ML 420 MG IV (15:21)
--- NOTE | 2021-09-11 08:01 | ONC FU_ITS ---
Dr. Wellington Patient Follow-Up Note Patient: Bella Conley Unit #: [id number]: 1965 Dicatated By: Al Wellington M.D.Date of Visit:Sep 08, 2021 Onc Med Follow-up/Prog Note Chief Complaint: Breast cancer. History of Present Illness: This is a 56 year-old woman with grade 2 infiltrating ductal carcinoma of the right breast, stage IIB (T2, pN1a, M0), ER/IL positive and HER-2/wan negative. She had presented with bloody discharge from the right nipple. Her bilateral screening mammogram on 11/08/2017 showed a question of increasing calcification cluster in the lateral superior posterior third right breast, BI-RADS 0. Additional mammographic views and ultrasound on 01/19/2018 was BI-RADS 5, highly suggestive of malignancy. Numerous irregularly shaped calcifications were noted along the 9 to 10:00 axis with adjacent soft tissue asymmetry measuring 18 x 8 mm. Ultrasound showed an irregular shaped mass at the 9:00 axis measuring 13 x 9 mm. She underwent ultrasound-guided biopsy on 01/29/2018. Pathology showed grade 2 infiltrating ductal carcinoma. The breast prognostic profile showed unfavorable Ki-67 at 36%. ER was positive at 91%, strong intensity, and IL was positive at 72%, also strong intensity. HER-2/wan was nonamplified, 2+ by IHC with amplification ratio by FISH of 1.8 with 2.5 HER- copy/cell. She then had surgical consultation with Dr. Katz in [place]. She had further evaluation with breast MRI. On 04/02/2018 she underwent right total mastectomy with axillary sentinel lymph node sampling, prophylactic left mastectomy, and immediate breast reconstruction. Pathology on the left breast showed fibrocystic change with fibrosis, apocrine metaplasia, and microcyst formation. The right breast showed grade 2 invasive ductal carcinoma measuring 21 x 20 x 15 mm. The closest margin from invasive carcinoma was greater than 10 mm. 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 The closest margin from DCIS was the deep margin at 6 mm. There was involvement in 2 of 2 axillary sentinel lymph nodes, the largest metastatic deposit measuring 6 mm. There was evidence of extranodal extension. The pathologic staging was pT2, pN1a. She underwent adjuvant chemotherapy with dose dense AC/T. She began cycle 1 of Adriamycin/cyclophosphamide on 05/16/2018. She did receive first cycle prophylaxis with Neulasta. She tolerated it with acceptable toxicity, and she was able to continue with cycle 2 on 05/30/2018. With cycle 3 on 06/13/2018 I did opt to omit the Neulasta. She was able to continue with cycle 4 on 06/28/2018. She then began weekly paclitaxel on 07/12/2018. She tolerated the initial infusion with no acute toxicity, and she then continue treatment weekly. She completed her 12th and final weekly paclitaxel infusion on 09/27/2018. She then underwent bilateral breast reconstruction. In December 2018 she began adjuvant hormonal therapy with anastrozole 1 mg daily. Within 2 days with pre-severe reaction which included swelling in her face, eyes, and tongue. It resolved with Benadryl. She then began a trial of therapy with exemestane 25 mg daily on 01/21/2019. She experienced no acute toxicity with it. Restaging PET/CT on 04/06/2019 showed an FDG avid right level II axillary lymph node measuring 5 mm, SUV 1.8. It was felt to be suspicious for micrometastasis. There were no other areas of abnormal uptake on that study. She was then seen by Dr. Katz and she underwent right axillary lymph node dissection on 04/29/2019. Pathology showed metastatic ductal carcinoma involving 2/2 lymph nodes. The metastatic deposits measured 3 mm and 6 mm, and both showed extracapsular extension. The breast prognostic profile showed ER positive at 98% and IL positive at 29%. HER-2/wan was negative, 1+ by IHC. A next generation sequencing study was positive for androgen receptor at 2+. It was also positive for PD-L1 expression at 1%. There were no actionable mutations identified. She was then seen for second opinion evaluation by Dr. Jensen Reeves at [facility]. She was referred for consolidation radiation therapy to the right axilla, and she continued adjuvant hormonal therapy with exemestane. She also was recommended to begin Zometa infusions prophylactically for bone health. Her other medical illnesses have been limited to hypothyroidism, GERD, and seasonal allergies. Her prior surgeries include vaginal hysterectomy in 1996 and appendectomy in 1994. She had been on long-term hormone replacement therapy beginning in 1997, though she apparently did not have oophorectomy. Her hormonal therapy was stopped with the diagnosis of her breast cancer. She had previously smoked 1-1/2 packs of cigarettes daily, but she quit smoking at age 32. INTERIM HISTORY: She is seen for a follow-up visit. With her last visit I had her try changing her antidepressant from fluoxetine to venlafaxine, but she tolerated that poorly and she opted to go back on the fluoxetine at 60 mg daily. She also now has undergone placement of a new implant in her right breast/reconstruction. She complains that she feels really tired and she also complains that she is sore and achy. She pretty much has normal activity now. ECOG score is 0. She has good appetite. She has not had fever. She sometimes has sweating at night. She has sinus drainage, sometimes with sore throat. She also has some cough. She does not complain of shortness of breath. She has had pain in her epigastric area and she has bad reflux symptoms at night. She also has been having some nausea. Bowel and bladder function have been okay. She has joint pain in her hands and knees. She occasionally has headache. She has no numbness/paresthesia or other focal neurologic symptoms. She is still having significant anxiety/depression. She has been taking trazodone to help with insomnia. Medications: Advil 1 Tablet (of 200 mg) Capsule Oral daily PRN, Omeprazole 1 (40 mg) Capsule Delayed Release Oral daily, PROzac 1 Capsule (of 20 mg) Oral daily, PROzac 1 Capsule (of 40 mg) Oral daily, traZODone HCl 1 (100 mg) Tablet Oral at bedtime, Xanax 1 (0.25 mg) Tablet Oral STAT PRN Allergies: Anastrozole Vital Signs: Performed on Sep 08, 2021 14:14 Height - 68.00 in Weight - 205.6 lbs (HIGH) BSA - 2.07 sq.m BMI - 31.26 (HIGH) Temperature - 97.4 F (LOW) Pulse - 69 /min Respiration - 18 /min BP - 146/80 mm(hg) (HIGH) O2 Sat - 98 % Pain - 3 Fatigue - 10 Physical Examination: Constitutional - She looks good generally, Eyes - Sclerae nonicteric. Conjunctivae clear, ENMT - No lesions noted in the oral cavity, Hematologic/Lymphatic - No cervical or clavicular adenopathy, Respiratory - Lungs are clear with good air movement bilaterally, Cardiovascular - Heart rhythm is regular. There is no murmur, gallop, or rub noted, Breasts - There are no chest wall lesions noted. There is no axillary adenopathy, Abdomen - Soft. Liver and spleen are not enlarged. There is no abdominal mass or ascites noted and there is no inguinal adenopathy, Extremities - No edema, Neurologic - No focal neurologic deficits noted. Lab/Imaging: Test performed on Sep 08, 2021 13:11 Sodium 137 mmol/L Potassium 4.1 mmol/L Chloride 99 mmol/L CO2 24 mmol/L Anion Gap 18.1 BUN 16 mg/dL Creatinine 0.9 mg/dL Cr Clearance (Est) 103.98 mL/min eGFR 65.0 mL/min Glucose 85 mg/dL Osmolality - Calculated 284 mOsm/kg Calcium 9.6 mg/dL Protein, Total 7.5 g/dL Albumin 4.5 g/dL Globulin 3.0 g/dL Bilirubin, Total 0.3 mg/dL ALT (SGPT) 33 U/L AST (SGOT) 30 U/L Alkaline Phosphatase 42 IU/L WBC 4.3 10 3/uL RBC 4.39 10 6/uL HGB 14.0 g/dL HCT 41.1 % MCV 93.6 fl MCH 31.9 pg MCHC 34.1 g/dL RDW 12.5 % Platelet Count 216 10 3/cmm MPV 9.8 fL Neutrophils 2.38 10 3/uL Lymphocytes 1.3 10 3/uL Monocytes 0.4 10 3/uL Eosinophils 0.1 10 3/uL Basophils 0.1 10 3/uL Neutrophil % 56.0 % Lymphocyte % 31.1 % Monocyte % 8.9 % Eosinophil % 2.1 % Basophils % 1.4 % NRBC % 0 % Problem List: 1. Grade 2 infiltrating ductal carcinoma of the right breast, stage IIB (T2, pN1a, M0), ER/IL positive and HER-2/wan negative. 2. Hypothyroidism. 3. Seasonal allergies. 4. GERD. Problems Addressed with this Encounter and Plan: 1. Patient with grade 2 infiltrating ductal carcinoma of the right breast, stage IIB (T2, pN1a, M0), ER/IL positive and HER-2/wan negative. She underwent ultrasound directed biopsy of the right breast on 01/29/2018 followed by bilateral mastectomy with immediate reconstruction and right axillary sentinel lymph node sampling on 04/02/2018. She was given adjuvant chemotherapy with 4 cycles of dose dense AC from 05/16/2018 through 06/28/2018 and 12 weekly infusions of paclitaxel from 07/12/2018 through 09/27/2018. She then underwent bilateral breast reconstruction. In December 2018 she began adjuvant hormonal therapy with anastrozole 1 mg daily. It was stopped within 2 days because of an acute reaction which included swelling in the face, eyes, and tongue. It resolved with Benadryl. She then began a trial of hormonal therapy with exemestane 25 mg daily on 01/21/2019. Restaging PET/CT in March 2019 showed suspicious uptake in a right level II axillary lymph node. A subsequent right axillary lymph node dissection on 04/29/2019 showed metastatic ductal carcinoma in 2/2 lymph nodes, both with extracapsular extension, ER/IL positive and HER-2/wan negative. Next generation sequencing showed androgen receptor positive at 2+ and positive PD-L1 expression at 1%. She was then seen for second opinion evaluation by Dr. Jensen Reeves at [facility]. She completed consolidation radiation to the right chest wall and axilla. She continued adjuvant hormonal therapy with exemestane 25 mg daily. During follow-up she has continued to have some side effects with the exemestane, mainly fatigue and generalized aching. Thus far the side effects have remained tolerable, and there has been no evidence for any further recurrence/progression of the breast cancer. She continues adjuvant hormonal therapy with exemestane 25 mg daily. She will be scheduled for a follow-up visit in 6 months. 2. She is at risk for osteoporosis due to long-term therapy with an aromatase inhibitor. She has been on treatment with Zometa for maintenance of bone health. She will be given Zometa 4 mg by IV infusion today, and she also will be given dexamethasone premedication. 3. She has anxiety and depression. She is back on treatment with fluoxetine 60 mg daily, as she had poor tolerance for venlafaxine. I will have her try increasing the dosage to 80 mg daily. She also continues alprazolam as needed. 4. She has been having significant acid reflux symptoms despite taking omeprazole. As her symptoms have been significantly worse at night, I recommended that she try elevating the head of her bed. In addition, I am going to have her try adding metoclopramide 10 mg 4 times daily on an ac and hs schedule. 5. She continues to have significant musculoskeletal pain, for which she has been taking ibuprofen or naproxen as needed. She will now be given a prescription for meloxicam 15 mg daily. Signed By: Al Wellington M.D. <<Signature on File>>
== END 2021-09-08 12:53 | disposition home or self-care (01) ==
LOC: ONCMED 12:59
PROVIDERS: PCP Registered Nurse; Visit Provider Internal Medicine Medical Oncology
DX: C50.811 Malignant neoplasm of overlapping sites of right female breast (principal); Z17.0 Estrogen receptor positive status [ER+]; Z79.899 Other long term (current) drug therapy
CPT/HCPCS: 80053; 85025; 96365; 96367; 99215; J1100; J3489; J7050

== ENCOUNTER 2022-03-21 12:45 | Oncology outpatient (recurring) (ONCR) | payer MEDICAID, SELFPAY ==
[2022-03-21 13:24] LABS: Basophils % 1.3 %; Eosinophils # 0.1 10^3/uL (0.0-0.8); Eosinophils % 1.6 %; Hematocrit 41.5 % (37.0-47.0); Hemoglobin 13.8 g/dL (11.5-15.3); Lymphocytes # 0.9 10^3/uL (0.8-4.8); Lymphocytes % 30.3 %; Mean Corpuscular HGB Conc 33.3 g/dL (30.0-36.0); Mean Corpuscular Hemoglobin 31.6 pg (28.0-34.0); Mean Platelet Volume 9.9 fL (7.4-10.4); Monocytes # 0.4 10^3/uL (0.2-0.9); Monocytes % 14.1 %; Neutrophils # 1.59 10^3/uL (1.8-7.7); Neutrophils % 52.4 %; Nucleated Red Blood Cells % 0 %; Platelet Count 204 10^3/cmm (130-400); Red Blood Count 4.37 10^6/uL (4.1-5.3); Red Cell Distribution Width 13.2 % (12.1-15.1)
[2022-03-21 13:48] LABS: Alanine Aminotransferase 53 U/L (0-33); Albumin Level 4.7 g/dL (3.5-5.2); Alkaline Phosphatase 45 IU/L (35-105); Anion Gap 15.1 (5-19); Aspartate Amino Transferase 52 U/L (0-32); Blood Urea Nitrogen 11 mg/dL (6-20); Calcium 9.7 mg/dL (8.5-10.5); Carbon Dioxide 25 mmol/L (22-29); Chloride 100 mmol/L (98-107); Glucose 102 mg/dL (65-115); Osmolality Calculated 282 mOsm/kg (285-295); Potassium 4.1 mmol/L (3.5-5.1); Sodium 136 mmol/L (136-145); Total Bilirubin 0.4 mg/dL (0.15-1.2); Total Protein 7.7 g/dL (6.6-8.7)
[2022-03-21] MEDS: sodium chloride 0.9% 50 mL Bag IV (15:31)
[2022-03-21] MEDS: dexamethasone 10 mg/mL INJ IVP (15:31)
[2022-03-21] MEDS: zoledronic acid 4 MG in sodium chloride 0.9% (100 ml) 100 ML 420 MG IV (15:35)
[2022-03-21] MEDS: sodium chloride 0.9% (100 ml) 100 ML 75 ML (15:37)
[2022-03-21 16:00] VITALS: BP 133/84; PULSE 66; RESP 18; TEMP 36.5; O2SAT 99
== END 2022-04-19 23:59 | disposition home or self-care (01) ==
LOC: ONCMED 12:47
PROVIDERS: PCP Registered Nurse; Referring Provider Registered Nurse; Visit Provider Internal Medicine Medical Oncology
DX: C50.411 Malignant neoplasm of upper-outer quadrant of right female breast (principal); Z17.0 Estrogen receptor positive status [ER+]; E55.9 Vitamin D deficiency, unspecified; B02.9 Zoster without complications; Z79.52 Long term (current) use of systemic steroids; Z79.818 Long term (current) use of other agents affecting estrogen receptors and estrogen levels; Z79.899 Other long term (current) drug therapy
CPT/HCPCS: 80053; 85025; 96365; 96367; 96374; 99214; J1100; J3489

== ENCOUNTER 2022-09-20 12:41 | Oncology outpatient (recurring) (ONCR) | payer MEDICAID, SELFPAY ==
[2022-09-20 13:30] LABS: Basophils # 0.1 10^3/uL (0.0-0.1); Basophils % 1.4 %; Eosinophils % 0.7 %; Hematocrit 39.6 % (37.0-47.0); Hemoglobin 13.6 g/dL (11.5-15.3); Lymphocytes # 1.4 10^3/uL (0.8-4.8); Lymphocytes % 23.9 %; Mean Corpuscular HGB Conc 34.3 g/dL (30.0-36.0); Mean Corpuscular Hemoglobin 32.2 pg (28.0-34.0); Mean Corpuscular Volume 93.6 fl (81-99); Monocytes # 0.5 10^3/uL (0.2-0.9); Monocytes % 8.3 %; Neutrophils # 3.77 10^3/uL (1.8-7.7); Neutrophils % 65.4 %; Nucleated Red Blood Cells % 0 %; Platelet Count 244 10^3/cmm (130-400); Red Blood Count 4.23 10^6/uL (4.1-5.3); Red Cell Distribution Width 12.7 % (12.1-15.1); White Blood Count 5.8 10^3/uL (4.0-10.0)
[2022-09-20 15:39] LABS: Alanine Aminotransferase 30 U/L (0-33); Albumin Level 4.5 g/dL (3.5-5.2); Alkaline Phosphatase 52 U/L (35-105); Anion Gap 16.7 (5-19); Aspartate Amino Transferase 35 U/L (0-32); Blood Urea Nitrogen 16 mg/dL (6-20); Calcium 9.9 mg/dL (8.5-10.5); Carbon Dioxide 25 mmol/L (22-29); Chloride 96 mmol/L (98-107); Glomerular Filtration Rate 57.4 mL/min (90-130); Glucose 153 mg/dL (65-115); Osmolality Calculated 282 mOsm/kg (285-295); Potassium 3.7 mmol/L (3.5-5.1); Sodium 134 mmol/L (136-145); Total Bilirubin 0.5 mg/dL (0.15-1.2); Total Protein 7.5 g/dL (6.6-8.7)
[2022-09-20 15:55] LABS: 25 Hydroxy Vitamin D 39 ng/mL (30-100)
[2022-09-20] MEDS: dexamethasone 10 mg/mL INJ IVP (15:57)
[2022-09-20] MEDS: zoledronic acid 4 MG in sodium chloride 0.9% (100 ml) 100 ML 420 MG IV (16:15)
== END 2022-10-19 23:59 | disposition home or self-care (01) ==
PROVIDERS: PCP Registered Nurse; Visit Provider Internal Medicine Medical Oncology
DX: C50.411 Malignant neoplasm of upper-outer quadrant of right female breast (principal); Z17.0 Estrogen receptor positive status [ER+]; Z90.13 Acquired absence of bilateral breasts and nipples; C77.3 Secondary and unspecified malignant neoplasm of axilla and upper limb lymph nodes; R53.83 Other fatigue; M25.59 Pain in other specified joint; L65.9 Nonscarring hair loss, unspecified; Z79.818 Long term (current) use of other agents affecting estrogen receptors and estrogen levels; Z79.52 Long term (current) use of systemic steroids; Z79.899 Other long term (current) drug therapy; F41.9 Anxiety disorder, unspecified
CPT/HCPCS: 80053; 82306; 85025; 96365; 96367; 96375; 99214; J1100; J3489

== ENCOUNTER 2022-09-23 11:05 | Emergency (ER) | payer MEDICAID, SELFPAY ==
[2022-09-23 11:07] VITALS: BP 118/71; PULSE 80; RESP 18; O2SAT 100; BMI 27.8
[2022-09-23 11:17] VITALS: BP 125/69; PULSE 73; RESP 18; O2SAT 97
--- NOTE | 2022-09-23 11:42 | XR_ITS ---
WS: [id number] Exam: XR sacrum coccyx min 2V [id number] Date/Time of Exam: 09/23/2022 11:52 AM Reason For Exam: fall There is a slightly displaced oblique fracture through the upper coccyx. The sacrum is intact. Mild D CHARLES of the SI joints. XR/XR sacrum coccyx min 2V [id number] IMPRESSION: 1. Minimally displaced fracture of the upper coccyx seen on the lateral view on ly. 2. The sacrum is intact. Mild bilateral SI joint DJD.
--- NOTE | 2022-09-23 11:42 | XR_ITS ---
WS: [id number] Exam: XR lumbar spine 2-3V* [id number] Date/Time of Exam: 09/23/2022 11:52 AM Reason For Exam: fall No acute fracture or dislocation. Disc spaces are preserved. Mild levoscoliosis. Mild facet DJD at L5 -S1 and L4-5. XR/XR lumbar spine 2-3V* [id number] IMPRESSION: 1. No fracture or malalignment. 2. Mild degenerative changes and mild levoscoliosis
--- NOTE | 2022-09-23 11:50 | XR_ITS ---
WS: [id number] Exam: XR cervical spine 3V* [id number] Date/Time of Exam: 09/23/2022 11:52 AM Reason For Exam: neck pain after fall No acute fracture or dislocation. Early degenerative disc narrowing and spondylosis from C5 to C7. St raightening. Normal paraspinal soft tissues. The odontoid is intact. XR/XR cervical spine 3V* [id number] IMPRESSION: 1. No acute fracture or malalignment. 2. Degenerative changes from C5 to C7. Straightening.
--- NOTE | 2022-09-23 12:07 | CTR_ITS ---
PROCEDURE INFORMATION: Exam: CT Head Without Contrast Exam date and time: 09/23/2022 12:56 PM Age: 57 years old Clinical indication: Injury or trauma; Fall; Blunt trauma (contusions or hematomas); Consciousness not specified; Additional info: Closed head injury TECHNIQUE: Imaging protocol: Computed tomography of the head without contrast. Radiation optimization: All CT scans at this facility use at least one of these dose optimization techniques: automated exposure control; mA and/or kV adjustment per patient size (includes targeted exams where dose is matched to clinical indication); or iterative reconstruction. COMPARISON: CR XR cervical spine 3V* [id number] 09/23/2022 12:43 PM RADIATION DOSE METRICS: Total DLP (mGy-cm): 1116.18 FINDINGS: Brain: Normal. No hemorrhage. Unremarkable white matter. No mass effect. Cerebral ventricles: No ventriculomegaly. Paranasal sinuses: Visualized sinuses are unremarkable. No fluid levels. Mastoid air cells: Visualized mastoid air cells are well aerated. Bones/joints: Unremarkable. No acute fracture. Soft tissues: There is a small scalp hematoma over the occipital bone. CT/CT head wo con* [id number] IMPRESSION: No acute intracranial abnormality.
[2022-09-23] MEDS: ketorolac 60 mg/2 mL INJ IM (12:32)
[2022-09-23] MEDS: promethazine 25 mg/mL SDV 1 mL IM (12:33)
[2022-09-23] MEDS: HYDROcodone-acetaminophen 5-325 mg Tablet 1 TAB PO (12:35)
--- NOTE | 2022-09-23 12:35 | PC.PHAR ---
pt states she takes care of her own medications-called [facility] to verify zometa and steroid shot name ctc closed pt states she just got the zometa and a steroid of some kind on sep 20 2022-notes are made in the pharmacy comments-pt states not been taking her meds states last time took on september 20 2022
[2022-09-23 13:48] VITALS: BP 111/54; PULSE 80; RESP 18; O2SAT 96
--- NOTE | 2022-09-23 13:56 | ED_ITS ---
HPI - Fall General: Chief Complaint: Fall Stated Complaint: Fall, hit head, tailbone pain, chest tightness Time Seen by Provider: 09/23/22 11:36 Source: patient Mode of arrival: ambulatory History of Present Illness: 57-year-old female presents emergency room. She states she fell yesterday she stumbled fell backwards landed on her buttocks and then fell a little further back and hit her head. She complaining of neck and head pain she had a couple episodes of vomiting. She has extreme pain on her tailbone and cannot sit or lie on her back supine due to pain. No other injuries. MD complaint: fall Onset (ago): day(s) (1) Fall from: standing Place fall occurred: home Loss of consciousness: Unsure Length of LOC: second(s) Prolonged down time: no Context: tripped/slipped Location of injury: head, neck and back Quality: sharp Associated symptoms-after fall: Reports headache(s) and neck pain; Denies abdominal pain, chest pain, confusion, difficulty walking, hematuria, lightheadedness, numbness, short of breath, vertigo or weakness Review of Systems Const: Denies: fever(s), chills, body aches, change in appetite, fatigue or malaise ENMT: Denies: throat pain, ear or mastoid pain, nasal discharge or nasal co ngestion Card: Denies: chest pain, palpitations or lightheadedness Resp: Denies: dyspnea, productive cough or non-productive cough GI: Reports: nausea and vomiting; Denies: abdominal pain : Denies: hematuria Musc: Reports: neck pain and back pain Skin/Breast: Denies: rash or pruritus Neuro: Reports: headache(s); Denies: numbness in extremities, weakness in extremities, difficulty walking, vertigo or confusion PFSH ED PFSH: Medical History Breast cancer GERD (gastroesophageal reflux disease) Hypothyroidism Seasonal allergies Vitamin D deficiency Surgical History History of bilateral mastectomy (04/02/18) Right total mastectomy with axillary sentinel lymph node biopsy and prophylactic left mastectomy History of breast reconstruction History of hysterectomy History of lymph node dissection of axilla (04/29/19) Right axillary lymph node dissection History of repair of hiatal hernia Family History Grandmother Cancer Grandfather Cancer Father , lung cancer Cancer Chronic kidney disease (CKD) Diabetes Lung disease Mother Hypertension Denies family history of CAD (coronary artery disease) Clotting disorder Dementia Hyperlipidemia Psychiatric illness Suicide Anesthesia complication Bleeding disorder Stroke Social History Smoking and tobacco status: former smoker (smoked x 15 years) Alcohol intake: current Alcohol intake frequency: few times a week Adopted: No Caregiver/support person: No Lives independently: No Household members: spouse Marital status: service: No Current occupational status: disabled Sexually active: Yes Current gender identity: Female Physical Exam Const: COMMON NORMALS: no acute distress GENERAL APPEARANCE: cooperative and comfortable ORIENTATION/CONSCIOUSNESS: Yes awake, Yes oriented to person, Yes oriented to place and Yes oriented to time HENMT: COMMON NORMALS: normocephalic, atraumatic, hearing grossly normal bilaterally, external ears normal, EAC's normal, TM's normal bilaterally, Normal nasal mucous membranes and turbinates present, moist oral mucous membranes and oropharynx normal HEAD & SCALP: normocephalic and atraumatic NOSE: Normal nasal mucous membranes and turbinates present EXTERNAL EAR: Yes external ears normal EXTERNAL AUDITORY CANAL: EAC's normal TYMPANIC MEMBRANE: TM's normal bilaterally Eye: COMMON NORMALS: Equal, round and reactive pupils present, EOMs intact bilaterally, conjunctivae normal and no scleral icterus CONJUNCTIVA: Yes conjunctivae normal PUPIL: Yes Equal, round and reactive pupils present Neck/C-Spine: COMMON NORMALS: full ROM, no lymphadenopathy, supple and no JVD Lymph: LYMPHATIC: no lymphadenopathy noted and no lymphedema noted Resp: COMMON NORMALS: normal respiratory effort, No retractions, No use of accessory muscles and clear to auscultation bilaterally AUSCULTATION: clear to auscultation bilaterally Cardio: COMMON NORMALS: no JVD, regular rate, regular rhythm and No murmurs present (Cardio) RATE: regular rate RHYTHM: regular rhythm GI: COMMON NORMALS: Soft to palpation and No hepatosplenomegaly present AUSCULTATION: Yes normoactive bowel sounds PALPATION: Yes Soft to palpation, No Tenderness to palpation present (GI), No Guarding due to palpation present (GI) and Yes No hepatosplenomegaly present Extremity: COMMON NORMALS: normal to inspection, capillary refill normal, no clubbing, cyanosis or edema, no calf tenderness and no pedal edema Neuro: SENSORIUM/ORIENTATION: Yes oriented to person, Yes oriented to place and Yes oriented to time Skin: COMMON NORMALS: no rashes or lesions noted GENERAL SKIN EXAM: no rashes or lesions noted Course Vital Signs: Vital signs: Vital Signs Pulse Rate 80 09/23/22 13:48 Respiratory Rate 18 09/23/22 13:48 Blood Pressure 111/54 09/23/22 13:48 Pulse Oximetry 96 09/23/22 13:48 Oxygen Delivery Me thod 09/23/22 11:17 MDM - Fall Medical Decision Making Imaging reviewed. Patient has a coccygeal fracture otherwise remainder of the imaging is negative. Reviewed with the patient given nausea medications some hydrocodone for pain advised starting to take Arminda-Colace regularly. Recheck with primary care doctor as needed. Medical Records I reviewed the patient's medical records. Lab Data I reviewed the patient's lab results. Radiology Impressions Lumbar Spine X-Ray 09/23/22 11:42 IMPRESSION: 1. No fracture or malalignment. 2. Mild degenerative changes and mild levoscoliosis Sacrum and Coccyx X-Ray 09/23/22 11:42 IMPRESSION: 1. Minimally displaced fracture of the upper coccyx seen on the lateral view only. 2. The sacrum is intact. Mild bilateral SI joint DJD. Cervical Spine X-Ray 09/23/22 11:50 IMPRESSION: 1. No acute fracture or malalignment. 2. Degenerative changes from C5 to C7. Straightening. Head CT 09/23/22 12:07 IMPRESSION: No acute intracranial abnormality. Discharge Plan Discharge Patient Disposition: Home Clinical Impression: Closed fracture of coccyx Condition: Stable Prescriptions: New hydrocodone-acetaminophen 5-325 mg tablet 1 tab PO Q6H PRN (Reason: pain) Qty: 10 0RF ondansetron HCl 4 mg tablet 4 mg PO Q6H PRN (Reason: nausea and vomiting) Qty: 20 0RF No Action ibuprofen [Advil] 200 mg tablet 400 mg PO Q6H PRN (Reason: Pain) alprazolam 0.25 mg tablet 0.25 mg PO TID PRN (Reason: anxiety) Qty: 30 1RF Zometa 4 mg Recon Soln See Rx Instructions .ROUTE .COMPLEX Rx Instructions: intravenously every 6 months Zofran ODT 4 mg Tablet,Disintegrating 4 mg PO .ONCE fluoxetine 40 mg capsule 80 mg PO BEDTIME meloxicam 15 mg tablet 15 mg PO BEDTIME omeprazole 40 mg capsule,delayed release(DR/EC) 40 mg PO BID exemestane 25 mg tablet 25 mg PO BEDTIME trazodone 100 mg tablet 100 mg PO BEDTIME Discharge Orders: Discharge ED (Routine); Ordered 09/23/22 Ordered By: Antoni Kraft Referrals: Odalys Laird, [employer] OPERATOR [Primary Care Provider] - Discharge Diet: Usual diet Discharge Activity: Increase activity as tolerated Patient Instructions: Opioid Safety, Pain Management Coding Level of Care Code ED Move Coordinator for Ivory Lewis
== END 2022-09-23 13:49 | disposition home or self-care (01) ==
PROVIDERS: Emergency Provider Family Medicine; PCP Registered Nurse
DX: S32.2XXA Fracture of coccyx, initial encounter for closed fracture (principal); Z87.891 Personal history of nicotine dependence; Z85.3 Personal history of malignant neoplasm of breast; W01.0XXA Fall on same level from slipping, tripping and stumbling without subsequent striking against object, initial encounter
CPT/HCPCS: 70450; 72040; 72100; 72220; 96372; 99285; J1885; J2550

== ENCOUNTER 2022-09-28 11:29 | Outpatient (CLI) | payer MEDICAID, SELFPAY ==
--- NOTE | 2022-09-28 12:00 | MR_ITS ---
WS: [id number] MRI HEAD WITHOUT CONTRAST TECHNIQUE: Sagittal T1, T2 axial, T2 axial FLAIR, axial and coronal T1 images, axial susceptibility w eighted imaging, axial diffusion weighted images, and coronal T2 images were obtained. 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 Ventricular system and basal cisterns are patent. Mild small vessel changes. Moderate parenchymal volume loss. Normal posterior fossa. Norm al vascular flow voids at the skull base. No extra-axial fluid collections. Paranasal sinuses and mas toid air cells well aerated. Normal posterior nasopharynx. Incidental partially empty sella. Normal optic chiasm and pituitary infundibulum. Mild symmetric atrophy temporal lobes and hippocampal formations. Normal cavernous sinuses and Meckel's cave. No hemosiderin on susceptibly weighted image s. MR/MR head wo con* [id number] IMPRESSION: 1. No evidence of restricted diffusion to suggest acute ischemia. Ventricular system and basal cisterns are patent. 2. Mild small vessel changes. Moderate parenchymal volume loss. 3. Mild symmetric atrophy temporal lobes and hippocampal formations. 4. No hemosiderin on susceptibly weighted images.
== END 2022-09-28 11:30 | disposition home or self-care (01) ==
LOC: RAD 11:30
PROVIDERS: PCP Registered Nurse; Visit Provider Registered Nurse
DX: S06.0XAA Concussion with loss of consciousness status unknown, initial encounter (principal); R56.1 Post traumatic seizures; W10.8XXA Fall (on) (from) other stairs and steps, initial encounter; G31.9 Degenerative disease of nervous system, unspecified
CPT/HCPCS: 70551; 81000

== ENCOUNTER 2023-03-30 13:36 | Oncology outpatient (recurring) (ONCR) | payer MEDICAID, SELFPAY ==
[2023-03-30 13:48] LABS: Basophils # 0.1 10^3/uL (0.0-0.1); Basophils % 0.8 %; Eosinophils % 0.3 %; Hematocrit 39.1 % (37.0-47.0); Lymphocytes # 1.3 10^3/uL (0.8-4.8); Lymphocytes % 20.2 %; Mean Corpuscular HGB Conc 33.2 g/dL (30.0-36.0); Mean Corpuscular Hemoglobin 31.7 pg (28.0-34.0); Mean Corpuscular Volume 95.4 fl (81-99); Mean Platelet Volume 9.6 fL (7.4-10.4); Monocytes # 0.4 10^3/uL (0.2-0.9); Monocytes % 6.9 %; Neutrophils # 4.58 10^3/uL (1.8-7.7); Neutrophils % 71.3 %; Nucleated Red Blood Cells % 0 %; Platelet Count 234 10^3/cmm (130-400); Red Cell Distribution Width 13.3 % (12.1-15.1); White Blood Count 6.4 10^3/uL (4.0-10.0)
[2023-03-30] MEDS: dexamethasone 10 mg/mL INJ IVP (17:00)
[2023-03-30] MEDS: zoledronic acid 4 MG in sodium chloride 0.9% (100 ml) 100 ML 420 MG IV (17:08)
== END 2023-04-19 23:59 | disposition home or self-care (01) ==
PROVIDERS: PCP Registered Nurse; Visit Provider Internal Medicine Medical Oncology
DX: C50.411 Malignant neoplasm of upper-outer quadrant of right female breast (principal); Z17.0 Estrogen receptor positive status [ER+]; Z90.13 Acquired absence of bilateral breasts and nipples; C77.3 Secondary and unspecified malignant neoplasm of axilla and upper limb lymph nodes; Z79.818 Long term (current) use of other agents affecting estrogen receptors and estrogen levels; Z79.52 Long term (current) use of systemic steroids; Z79.899 Other long term (current) drug therapy
CPT/HCPCS: 80053; 82306; 85025; 99214; J1100; J3489

== ENCOUNTER 2023-10-26 12:27 | Oncology outpatient (recurring) (ONCR) | payer MEDICAID, SELFPAY ==
[2023-10-26 12:55] VITALS: BP 141/90; PULSE 99; RESP 16; TEMP 36.7; O2SAT 95
[2023-10-26 13:04] LABS: Basophils # 0.1 10^3/uL (0.0-0.1); Basophils % 0.9 %; Eosinophils # 0.1 10^3/uL (0.0-0.8); Eosinophils % 1.9 %; Hematocrit 42.2 % (36-47); Lymphocytes # 1.5 10^3/uL (0.8-4.8); Lymphocytes % 25.4 %; Mean Corpuscular HGB Conc 34.4 g/dL (30-55); Mean Corpuscular Hemoglobin 32.1 pg (27-33); Mean Corpuscular Volume 93.4 fl (85-98); Mean Platelet Volume 9.5 fL (7.4-10.4); Monocytes # 0.5 10^3/uL (0.2-0.9); Monocytes % 9.3 %; Neutrophils # 3.55 10^3/uL (1.8-7.7); Neutrophils % 62.1 %; Nucleated Red Blood Cells % 0 %; Platelet Count 267 10^3/cmm (157-399); Red Blood Count 4.52 10^6/uL (3.85-5.65); Red Cell Distribution Width 13.1 % (12.1-15.1); White Blood Count 5.71 10^3/uL (3.29-11.43)
[2023-10-26 13:52] LABS: 25 Hydroxy Vitamin D 45 ng/mL (30-100); Alanine Aminotransferase 45 U/L (0-33); Albumin Level 4.8 g/dL (3.5-5.2); Alkaline Phosphatase 45 U/L (35-105); Aspartate Amino Transferase 60 U/L (0-32); Blood Urea Nitrogen 21 mg/dL (6-20); Calcium 9.8 mg/dL (8.5-10.5); Carbon Dioxide 22 mmol/L (22-29); Chloride 99 mmol/L (98-107); Globulin 2.9 g/dL (1.3-4.6); Glomerular Filtration Rate 57.1 mL/min (90-130); Glucose 114 mg/dL (65-115); Osmolality Calculated 288 mOsm/kg (285-295); Sodium 137 mmol/L (136-145); Total Bilirubin 0.5 mg/dL (0.15-1.2); Total Protein 7.7 g/dL (6.6-8.7)
[2023-10-26 13:54] LABS: Anion Gap 20.3 (5-19); Potassium 4.3 mmol/L (3.5-5.1)
[2023-10-26] MEDS: dexamethasone 10 mg/mL INJ IVP (15:04)
[2023-10-26] MEDS: zoledronic acid 4 MG in sodium chloride 0.9% (100 ml) 100 ML 420 MG IV (15:29)
[2023-10-26 16:10] VITALS: BP 128/78; PULSE 78; RESP 18; TEMP 36.6; O2SAT 98
== END 2023-11-19 23:59 | disposition home or self-care (01) ==
PROVIDERS: Nurse Practitioner Family; PCP Registered Nurse; Visit Provider Internal Medicine Medical Oncology
DX: C50.411 Malignant neoplasm of upper-outer quadrant of right female breast (principal); E55.9 Vitamin D deficiency, unspecified
CPT/HCPCS: 80053; 82306; 85025; 96365; 96374; 99214; J1100; J3489

== ENCOUNTER 2024-06-13 11:05 | Oncology outpatient (recurring) (ONCR) | payer MEDICAID, SELFPAY ==
[2024-06-13 11:28] LABS: Basophils # 0.1 10^3/uL (0.0-0.1); Basophils % 1.6 %; Eosinophils # 0.1 10^3/uL (0.0-0.8); Eosinophils % 1.1 %; Hematocrit 40.7 % (36-47); Lymphocytes # 1.1 10^3/uL (0.8-4.8); Lymphocytes % 24.6 %; Mean Corpuscular HGB Conc 34.4 g/dL (30-55); Mean Corpuscular Hemoglobin 33.7 pg (27-33); Mean Corpuscular Volume 97.8 fl (85-98); Mean Platelet Volume 9.7 fL (7.4-10.4); Monocytes # 0.3 10^3/uL (0.2-0.9); Monocytes % 7.1 %; Neutrophils # 2.92 10^3/uL (1.8-7.7); Neutrophils % 65.2 %; Nucleated Red Blood Cells % 0 %; Platelet Count 200 10^3/cmm (157-399); Red Blood Count 4.16 10^6/uL (3.85-5.65); Red Cell Distribution Width 12.6 % (12.1-15.1); White Blood Count 4.48 10^3/uL (3.29-11.43)
[2024-06-13 11:42] LABS: Alanine Aminotransferase 35 U/L (0-33); Albumin Level 4.7 g/dL (3.5-5.2); Alkaline Phosphatase 40 U/L (35-105); Anion Gap 19.3 (5-19); Aspartate Amino Transferase 54 U/L (0-32); Blood Urea Nitrogen 11 mg/dL (6-20); Calcium 9.2 mg/dL (8.5-10.5); Carbon Dioxide 24 mmol/L (22-29); Chloride 97 mmol/L (98-107); Globulin 2.8 g/dL (1.3-4.6); Glomerular Filtration Rate 73.9 mL/min (90-130); Glucose 125 mg/dL (65-115); Osmolality Calculated 283 mOsm/kg (285-295); Potassium 4.3 mmol/L (3.5-5.1); Sodium 136 mmol/L (136-145); Total Bilirubin 0.5 mg/dL (0.15-1.2); Total Protein 7.5 g/dL (6.6-8.7)
[2024-06-13] MEDS: sodium chloride 0.9% (100 ml) 100 ML 75 ML (13:37)
[2024-06-13] MEDS: dexamethasone 10 mg/mL INJ IVP (13:37)
[2024-06-13] MEDS: zoledronic acid (Zometa) 4 MG/100 ML PIGGYBACK 400 MG IV (14:06)
[2024-06-13 14:30] VITALS: BP 131/68; PULSE 74; RESP 17; TEMP 36.6; O2SAT 96
== END 2024-06-19 23:59 | disposition home or self-care (01) ==
PROVIDERS: Nurse Practitioner Family; PCP Registered Nurse; Visit Provider Internal Medicine Medical Oncology
DX: C50.411 Malignant neoplasm of upper-outer quadrant of right female breast (principal); Z87.891 Personal history of nicotine dependence; Z17.0 Estrogen receptor positive status [ER+]; Z90.13 Acquired absence of bilateral breasts and nipples; Z79.811 Long term (current) use of aromatase inhibitors; Z92.21 Personal history of antineoplastic chemotherapy; Z92.3 Personal history of irradiation; Z79.83 Long term (current) use of bisphosphonates
CPT/HCPCS: 80053; 85025; 96365; 99214; J1100; J3489

== ENCOUNTER 2025-07-09 12:30 | Oncology outpatient (recurring) (ONCR) | payer MEDICAID, SELFPAY ==
[2025-06-30 13:52] VITALS: BP 114/70; PULSE 65; TEMP 35.9; O2SAT 96
[2025-07-09 12:47] VITALS: BP 113/56; PULSE 64; RESP 16; TEMP 36.3; O2SAT 94
[2025-07-09 14:03] VITALS: BP 130/82; PULSE 60; RESP 16; TEMP 36.2; O2SAT 98
== END 2025-07-20 23:59 | disposition home or self-care (01) ==
PROVIDERS: PCP Registered Nurse; Visit Provider Internal Medicine Medical Oncology
DX: Z53.9 Procedure and treatment not carried out, unspecified reason (principal); R11.2 Nausea with vomiting, unspecified; Z79.899 Other long term (current) drug therapy
CPT/HCPCS: 96360; J7030

== ENCOUNTER 2025-08-15 10:23 | Oncology outpatient (recurring) (ONCR) | payer MEDICAID, SELFPAY ==
[2025-07-22 15:25] VITALS: BP 120/60; PULSE 80; TEMP 36.4; O2SAT 98
[2025-07-25 11:49] VITALS: BP 138/87; PULSE 81; RESP 16; TEMP 36.3; O2SAT 100
[2025-07-28 13:42] VITALS: BP 137/82; PULSE 69; RESP 16; TEMP 36.4; O2SAT 99
[2025-08-11 13:10] VITALS: BP 135/83; PULSE 69; RESP 16; TEMP 36.3; O2SAT 98
[2025-08-15 10:47] VITALS: BP 132/86; PULSE 88; RESP 16; O2SAT 96
== END 2025-08-19 23:59 | disposition home or self-care (01) ==
PROVIDERS: PCP Registered Nurse; Visit Provider Internal Medicine Medical Oncology
DX: C50.411 Malignant neoplasm of upper-outer quadrant of right female breast (principal); R11.2 Nausea with vomiting, unspecified; Z79.899 Other long term (current) drug therapy
CPT/HCPCS: 96360; J7030

== ENCOUNTER 2025-09-05 10:25 | Oncology outpatient (recurring) (ONCR) | payer MEDICAID, SELFPAY ==
[2025-09-05 10:56] VITALS: BP 120/74; PULSE 91; RESP 16; TEMP 36.2; O2SAT 98
[2025-09-05 12:05] VITALS: BP 128/79; PULSE 83; RESP 16; TEMP 36.2; O2SAT 99
== END 2025-09-19 23:59 | disposition home or self-care (01) ==
PROVIDERS: PCP Registered Nurse; Visit Provider Internal Medicine Medical Oncology
DX: C50.411 Malignant neoplasm of upper-outer quadrant of right female breast (principal); Z79.899 Other long term (current) drug therapy
CPT/HCPCS: 96360; J7030

== ENCOUNTER 2025-09-26 10:30 | Oncology outpatient (recurring) (ONCR) | payer MEDICAID, SELFPAY ==
[2025-09-22 13:39] VITALS: BP 114/69; PULSE 87; RESP 17; TEMP 36.3; O2SAT 99
== END 2025-10-19 23:59 | disposition home or self-care (01) ==
PROVIDERS: PCP Registered Nurse; Visit Provider Internal Medicine Medical Oncology
DX: C50.411 Malignant neoplasm of upper-outer quadrant of right female breast; Z79.899 Other long term (current) drug therapy; Z53.9 Procedure and treatment not carried out, unspecified reason
CPT/HCPCS: 96360; J7030